=== PATIENT | male | born 1950 | race Hispanic/Latino ===

== ENCOUNTER 2021-05-26 02:13 | Emergency (ER) | payer MEDICARE ==
[2021-05-26 02:20] VITALS: BP 195/126
== END 2021-05-26 04:40 | disposition home or self-care (01) ==
LOC: ED 02:13
DX: R33.9 Retention of urine, unspecified (principal); R10.30 Lower abdominal pain, unspecified; Z98.890 Other specified postprocedural states; Z79.899 Other long term (current) drug therapy
CPT/HCPCS: 51702; 81001; 99283

== ENCOUNTER 2022-06-09 23:40 | Emergency (ER) | payer MEDICARE ==
[2022-06-09 23:56] VITALS: BP 183/94
[2022-06-10 01:07] LABS: Color,Urine Red (Yellow)
[2022-06-10 01:09] LABS: RBC,Urine > 182.0 /HPF (0.0-6.0)
[2022-06-10 01:10] LABS: WBC,Urine < 1.0 /HPF (0.0-6.0)
== END 2022-06-10 01:00 | disposition left against medical advice (07) ==
LOC: ED 23:40
DX: R36.9 Urethral discharge, unspecified (principal); Z53.21 Procedure and treatment not carried out due to patient leaving prior to being seen by health care provider

== ENCOUNTER 2022-06-14 02:13 | Emergency (ER) | payer MEDICARE ==
--- NOTE | 2022-06-14 02:48 | Emergency Department Report ---
HPI - General Chief Complaint: Urogenital-Male PUI?: No Time Seen by Provider: 06/14/22 02:42 - HPI HPI: 71-year-old male with a history of chronic urinary retention, presents for evaluation of urinary retention. Patient states that his symptoms began in the past 2 to 3 days. He complains of lower abdominal pain which is persistent. He states he last urinated in the waiting room prior to being brought back to the main emergency department. He states he is currently being treated for hematuria and UTI by his urologist but does not know the name of the antibiotic which he is taking. No back or flank pain, no nausea vomiting fevers or chills, no body aches. Pain currently 6 out of 10. Patient states he has an appointment later this morning with his urologist, Dr.Tarique Mullins, whose number is [phone]. ED Past Medical Hx - Past Medical History Previous Medical History?: Yes Hx Hypertension: No Hx CVA: No Hx Heart Attack/AMI: No Hx Congestive Heart Failure: No Hx Diabetes: No Hx Deep Vein Thrombosis: No Hx Pulmonary Embolism: No Hx GERD: No Hx Liver Disease: No Hx Renal Disease: No Hx Sickle Cell Disease: No Hx Arthritis: No Hx Headaches / Migraines: No Hx Seizures: No Hx Kidney Stones: No Hx Psychiatric Treatment: No Hx Asthma: No Hx COPD: No Hx Tuberculosis: No Hx Dementia: No Hx HIV: No Additional medical history: BPH - Surgical History Hx Coronary Stent: No Hx Open Heart Surgery: No Hx Pacemaker: No Hx Internal Defibrillator: No Hx Cholecystectomy: No Hx Appendectomy: No Hx Breast Surgery: No - Social History Smoking Status: Never Smoker Substance Use Type: None - Medications Home Medications: Home Medications Medication Instructions Recorded Confirmed Last Taken Type Ibuprofen [Motrin] 800 mg PO Q8HR PRN #15 tablet 05/30/16 Unknown Rx cephALEXin [Keflex] 500 mg PO Q12HR #14 cap 05/30/16 Unknown Rx ED Review of Systems ROS: Stated complaint: PROBLEM URINATING Other details as noted in HPI Comment: All other systems reviewed and negative Physical Exam - Physical Exam Vital Signs: Vital Signs 06/14/22 02:19 Temperature 97.4 F L Pulse Rate 103 H Respiratory 18 Rate Blood Pressure 223/99 O2 Sat by Pulse 98 Oximetry General: Gen: pt is well appearing, no acute distress HEENT: Normocephalic atraumatic pupils equally round and reactive to light extraocular muscles intact sclera anicteric Neck: Full range of motion, no midline spinal tenderness palpation, no JVD, no carotid bruits, no nuchal rigidity CVS: S1-S2 regular rate and rhythm with no gallops rubs or murmurs, chest wall nontender Pulmonary: Clear to auscultation bilaterally, no wheezes rales or rhonchi Abdomen: Lower abdomen firm, moderate tenderness palpation of the patient's suprapubic region, no guarding or rebound tenderness, no palpable deformities or step-offs, normal active bowel sounds, no hepatosplenomegaly, no pulsatile masses : Deferred Extremities: No cyanosis no clubbing no edema, intact distal peripheral pulses, Integumentary: Skin normal, no petechia no purpura no abscess no lacerations no evidence of trauma no evidence of infection Neuro: Patient is awake alert and oriented to person place time situation, mentating well, cranial nerves II through XII intact, no focal neurodeficits, sensation grossly tact Psych: Calm cooperative, mood affect normal ED Course Vital Signs 06/14/22 02:19 Temperature 97.4 F L Pulse Rate 103 H Respiratory 18 Rate Blood Pressure 223/99 O2 Sat by Pulse 98 Oximetry - Reevaluation(s) Reevaluation #1: 06/14/22 05:18 pt reassessed; He denies any complaints; pt is comfortable and well appearing; nad; vss ED Medical Decision Making - Lab Data Result diagrams: 06/14/22 02:50 06/14/22 02:50 - Medical Decision Making 71-year-old male with a history of acute on chronic urinary retention presents for evaluation of acute urinary retention. Vitals reviewed. Patient initially very hypertensive upon arrival. However his blood pressure subsequently improved without intervention here. Serum labs are grossly unremarkable for any acute organ dysfunction, leukocytosis or bandemia, or any infection. The patient initially was adamant that he did not want a urinary Zarate catheter and requested directly to undergo urinary catheterization. However the patient subsequently changed his mind and requested to have a Zarate catheter placed. Patient confirms several times that he has a scheduled follow-up appointment today with his urologist, Dr.Tarique Mullins, for follow-up concerning his antibiotics and ongoing urinary retention. Patient discharged home with indwelling urinary Zarate catheter. No further emergent work-up warranted at this time. Patient stable for discharge to home. Prior to discharge patient was given strict verbal and written return precautions. He verbalized understanding and agreement plan of care peer Critical Care Time: No Critical care attestation.: If time is entered above; I have spent that time in minutes in the direct care of this critically ill patient, excluding procedure time. ED Disposition Clinical Impression: Acute on chronic urinary retention Disposition: HOME / SELF CARE / HOMELESS Is pt being admited?: No Does the pt Need Aspirin: No Condition: Stable Instructions: Acute Urinary Retention, Male, [id number] Additional Instructions: See your urologist today for your routine scheduled follow up appointment. He will further advise you and determine how long your Zarate catheter needs to remain in place. Your blood work on today is normal and your urine does not show any active infection. Observe your symptoms very carefully. Return to the nearest emergency department if you develop persistent bleeding and/or clots in your urinary Zarate catheter, severe abdominal pain, vomiting, back or flank pain, any fever of 100.4 Fahrenheit or higher, or if any other new worrisome symptoms develop.
[2022-06-14 03:20] VITALS: BP 166/85
[2022-06-14 03:22] LABS: Basophils % (Auto) 0.1 % (0.0-1.8); Eosinophils # (Auto) 0.1 K/mm3 (0.0-0.4); Eosinophils % (Auto) 0.9 % (0.0-4.3); Hematocrit 38.8 % (35.5-45.6); Hemoglobin 13.2 gm/dl (11.8-15.2); Lymphocytes # (Auto) 0.6 K/mm3 (1.2-5.4); Lymphocytes % (Auto) 5.9 % (13.4-35.0); Mean Corpuscular HGB Conc 34 % (32-34); Mean Corpuscular Volume 97 fl (84-94); Monocytes # (Auto) 0.6 K/mm3 (0.0-0.8); Monocytes % (Auto) 5.3 % (0.0-7.3); Platelet Count 274 K/mm3 (140-440); Red Blood Count 4.01 M/mm3 (3.65-5.03); Red Cell Distribution Width 13.2 % (13.2-15.2)
[2022-06-14 03:40] LABS: Blood Urea Nitrogen 10 mg/dL (9-20); Calcium 8.6 mg/dL (8.4-10.2); Hemolysis Index 5
[2022-06-14 03:50] LABS: BUN/Creatinine Ratio 14
[2022-06-14 04:59] LABS: Mucus,Urine FEW /HPF
[2022-06-14 05:04] LABS: Color,Urine Brown (Yellow)
== END 2022-06-14 05:34 | disposition home or self-care (01) ==
LOC: ED 02:13
DX: R33.9 Retention of urine, unspecified (principal)
CPT/HCPCS: 36415; 51702; 80048; 81001; 85025; 99283

== ENCOUNTER 2022-06-14 17:50 | Emergency (ER) | payer MEDICARE, OTHER ==
[2022-06-15 09:23] LABS: Color,Urine Red (Yellow)
[2022-06-15 09:28] LABS: Bacteria,Urine 2+ /HPF (Negative); Hyaline Casts,Urine 2 /LPF; Mucus,Urine 3+ /HPF
--- NOTE | 2022-06-15 09:53 | Emergency Department Report ---
ED Male HPI - General Chief complaint: Urogenital-Male Stated complaint: CATHETER STOPPED UP Time Seen by Provider: 06/15/22 06:36 Source: patient Mode of arrival: Ambulatory Limitations: No Limitations - History of Present Illness Initial comments: Pt was here last night for catheter placement and UTI, states he believes it is stopped up, urine leaking around catheter, pt moaning and pacing around in triage MD Complaint: dysuria -: Gradual, hour(s) Radiation: none Quality: aching Consistency: now resolved Improves with: none Worsens with: none - Related Data Previous Rx's Medication Instructions Recorded Last Taken Type Ibuprofen [Motrin] 800 mg PO Q8HR PRN #15 tablet 05/30/16 Unknown Rx cephALEXin [Keflex] 500 mg PO Q12HR #14 cap 05/30/16 Unknown Rx Allergies Allergy/AdvReac Type Severity Reaction Status Date / Time No Known Allergies Allergy Unverified 08/06/13 14:04 ED Review of Systems ROS: Stated complaint: CATHETER STOPPED UP Other details as noted in HPI Constitutional: denies: chills, fever Eyes: denies: eye pain, eye discharge, vision change ENT: denies: ear pain, throat pain Respiratory: denies: cough, shortness of breath, wheezing Cardiovascular: denies: chest pain, palpitations Endocrine: no symptoms reported Gastrointestinal: denies: abdominal pain, nausea, diarrhea Genitourinary: denies: urgency, dysuria Musculoskeletal: denies: back pain, joint swelling, arthralgia Skin: denies: rash, lesions Neurological: denies: headache, weakness, paresthesias Psychiatric: denies: anxiety, depression Hematological/Lymphatic: denies: easy bleeding, easy bruising ED Past Medical Hx - Past Medical History Hx Hypertension: No Hx CVA: No Hx Heart Attack/AMI: No Hx Congestive Heart Failure: No Hx Diabetes: No Hx Deep Vein Thrombosis: No Hx Pulmonary Embolism: No Hx GERD: No Hx Liver Disease: No Hx Renal Disease: No Hx Sickle Cell Disease: No Hx Arthritis: No Hx Headaches / Migraines: No Hx Seizures: No Hx Kidney Stones: No Hx Psychiatric Treatment: No Hx Asthma: No Hx COPD: No Hx Tuberculosis: No Hx Dementia: No Hx HIV: No Additional medical history: BPH - Surgical History Past Surgical History?: No Hx Coronary Stent: No Hx Open Heart Surgery: No Hx Pacemaker: No Hx Internal Defibrillator: No Hx Cholecystectomy: No Hx Appendectomy: No Hx Breast Surgery: No - Social History Smoking Status: Never Smoker Substance Use Type: None - Medications Home Medications: Home Medications Medication Instructions Recorded Confirmed Last Taken Type Ibuprofen [Motrin] 800 mg PO Q8HR PRN #15 tablet 05/30/16 Unknown Rx cephALEXin [Keflex] 500 mg PO Q12HR #14 cap 05/30/16 Unknown Rx ED Physical Exam - General Limitations: No Limitations General appearance: alert, in no apparent distress - Head Head exam: Present: atraumatic, normocephalic - Eye Eye exam: Present: normal appearance - ENT ENT exam: Present: mucous membranes moist - Neck Neck exam: Present: normal inspection - Respiratory Respiratory exam: Present: normal lung sounds bilaterally. Absent: respiratory distress - Cardiovascular Cardiovascular Exam: Present: regular rate, normal rhythm. Absent: systolic murmur, diastolic murmur, rubs, gallop - GI/Abdominal GI/Abdominal exam: Present: soft, normal bowel sounds - Rectal Rectal exam: Present: deferred - Extremities Exam Extremities exam: Present: normal inspection - Back Exam Back exam: Present: normal inspection - Neurological Exam Neurological exam: Present: alert, oriented X3 - Psychiatric Psychiatric exam: Present: normal affect, normal mood - Skin Skin exam: Present: warm, dry, intact, normal color. Absent: rash ED Course Vital Signs 06/14/22 06/15/22 06/15/22 18:52 05:16 05:18 Temperature 97.8 F 98.2 F Pulse Rate 98 H 88 87 Respiratory 18 13 17 Rate Blood Pressure Blood Pressure 173/88 154/79 [Right] O2 Sat by Pulse 96 98 98 Oximetry 06/15/22 06/15/22 06/15/22 05:31 05:45 06:01 Temperature Pulse Rate 93 H 85 83 Respiratory 19 17 19 Rate Blood Pressure 145/73 155/70 155/70 Blood Pressure [Right] O2 Sat by Pulse 98 98 98 Oximetry 06/15/22 06/15/22 06/15/22 06:15 06:18 07:31 Temperature 97.8 F Pulse Rate 88 88 Respiratory 19 22 Rate Blood Pressure 148/80 Blood Pressure 132/66 [Right] O2 Sat by Pulse 98 99 97 Oximetry ED Medical Decision Making - Medical Decision Making fley replaced pain resoved abx given Critical care attestation.: If time is entered above; I have spent that time in minutes in the direct care of this critically ill patient, excluding procedure time. ED Disposition Clinical Impression: UTI (urinary tract infection), Zarate catheter problem Disposition: HOME / SELF CARE / HOMELESS Is pt being admited?: No Does the pt Need Aspirin: No Condition: Stable Instructions: Urinary Tract Infection, Adult, [id number] Referrals: CEDRIC BATRES JR, MD [Primary Care Provider] - 3-5 Days
[2022-06-15 10:33] VITALS: BP 136/70
== END 2022-06-15 10:32 | disposition home or self-care (01) ==
LOC: ED 17:50
DX: T83.091A Other mechanical complication of indwelling urethral catheter, initial encounter (principal); N39.0 Urinary tract infection, site not specified; Y73.8 Miscellaneous gastroenterology and urology devices associated with adverse incidents, not elsewhere classified; Y92.89 Other specified places as the place of occurrence of the external cause
CPT/HCPCS: 51702; 81001; 87086; 99283

== ENCOUNTER 2022-07-10 21:18 | Emergency (ER) | payer MEDICARE, OTHER ==
[2022-07-10 23:30] LABS: Bilirubin,Urine NEG (Negative); Blood,Urine MOD (Negative); Color,Urine Red (Yellow)
[2022-07-10 23:36] LABS: Protein,Urine >500 mg/dL (Negative); Urobilinogen,Urine < 2 mg/dL (<2.0)
[2022-07-10 23:59] LABS: RBC,Urine > 182.0 /HPF (0.0-6.0); WBC,Urine > 182.0 /HPF (0.0-6.0)
[2022-07-11] MEDS ORDERED: SODIUM CHLORIDE 0.9% IRRIG SOLN 2000 ML IR SCH (01:00)
--- NOTE | 2022-07-11 02:53 | Emergency Department Report ---
ED General Adult HPI - General Chief complaint: Urogenital-Male Stated complaint: BLEEDING AROUND CATHETER PUI?: No Time Seen by Provider: 07/10/22 22:47 Source: patient Mode of arrival: Ambulatory Limitations: No Limitations - History of Present Illness Initial comments: nick reports his catheter is clogged and he is having some bleeding -: Gradual, hour(s) Consistency: constant Improves with: none Worsens with: none Associated Symptoms: denies: denies other symptoms, confusion, chest pain, cough Treatments Prior to Arrival: none - Related Data Previous Rx's Medication Instructions Recorded Last Taken Type Ibuprofen [Motrin] 800 mg PO Q8HR PRN #15 tablet 05/30/16 Unknown Rx cephALEXin [Keflex] 500 mg PO Q12HR #14 cap 05/30/16 Unknown Rx Ciprofloxacin HCl 500 mg PO BID #14 06/15/22 Unknown Rx Ciprofloxacin [Ciprofloxacin ORAL 500 mg PO Q12H #14 ml 07/11/22 Unknown Rx LIQ] Allergies Allergy/AdvReac Type Severity Reaction Status Date / Time No Known Allergies Allergy Unverified 08/06/13 14:04 ED Review of Systems ROS: Stated complaint: BLEEDING AROUND CATHETER Other details as noted in HPI Constitutional: denies: chills, fever Eyes: denies: eye pain, eye discharge, vision change ENT: denies: ear pain, throat pain Respiratory: denies: cough, shortness of breath, wheezing Cardiovascular: denies: chest pain, palpitations Endocrine: no symptoms reported Gastrointestinal: denies: abdominal pain, nausea, diarrhea Genitourinary: denies: urgency, dysuria Musculoskeletal: denies: back pain, joint swelling, arthralgia Skin: denies: rash, lesions Neurological: denies: headache, weakness, paresthesias Psychiatric: denies: anxiety, depression Hematological/Lymphatic: denies: easy bleeding, easy bruising ED Past Medical Hx - Past Medical History Previous Medical History?: Yes Hx Hypertension: No Hx CVA: No Hx Heart Attack/AMI: No Hx Congestive Heart Failure: No Hx Diabetes: No Hx Deep Vein Thrombosis: No Hx Pulmonary Embolism: No Hx GERD: No Hx Liver Disease: No Hx Renal Disease: No Hx Sickle Cell Disease: No Hx Arthritis: No Hx Headaches / Migraines: No Hx Seizures: No Hx Kidney Stones: No Hx Psychiatric Treatment: No Hx Asthma: No Hx COPD: No Hx Tuberculosis: No Hx Dementia: No Hx HIV: No Additional medical history: BPH - Surgical History Past Surgical History?: Yes Hx Coronary Stent: No Hx Open Heart Surgery: No Hx Pacemaker: No Hx Internal Defibrillator: No Hx Cholecystectomy: No Hx Appendectomy: No Hx Breast Surgery: No - Social History Smoking Status: Never Smoker Substance Use Type: None - Medications Home Medications: Home Medications Medication Instructions Recorded Confirmed Last Taken Type Ibuprofen [Motrin] 800 mg PO Q8HR PRN #15 tablet 05/30/16 Unknown Rx cephALEXin [Keflex] 500 mg PO Q12HR #14 cap 05/30/16 Unknown Rx Ciprofloxacin HCl 500 mg PO BID #14 06/15/22 Unknown Rx Ciprofloxacin [Ciprofloxacin ORAL 500 mg PO Q12H #14 ml 07/11/22 Unknown Rx LIQ] ED Physical Exam - General Limitations: No Limitations General appearance: alert, in no apparent distress - Head Head exam: Present: atraumatic, normocephalic - Eye Eye exam: Present: normal appearance - ENT ENT exam: Present: mucous membranes moist - Neck Neck exam: Present: normal inspection - Respiratory Respiratory exam: Present: normal lung sounds bilaterally. Absent: respiratory distress - Cardiovascular Cardiovascular Exam: Present: regular rate, normal rhythm. Absent: systolic murmur, diastolic murmur, rubs, gallop - GI/Abdominal GI/Abdominal exam: Present: soft, normal bowel sounds - Rectal Rectal exam: Present: deferred - Extremities Exam Extremities exam: Present: normal inspection - Back Exam Back exam: Present: normal inspection - Neurological Exam Neurological exam: Present: alert, oriented X3 - Psychiatric Psychiatric exam: Present: normal affect, normal mood - Skin Skin exam: Present: warm, dry, intact, normal color. Absent: rash ED Course Vital Signs 07/10/22 07/10/22 22:39 23:28 Temperature 98.2 F Pulse Rate 113 H Respiratory 16 Rate Blood Pressure 169/101 [Right] O2 Sat by Pulse 100 98 Oximetry ED Medical Decision Making - Medical Decision Making kat terrell irrgated Critical care attestation.: If time is entered above; I have spent that time in minutes in the direct care of this critically ill patient, excluding procedure time. ED Disposition Clinical Impression: Hematuria, gross Disposition: 01 HOME / SELF CARE / HOMELESS Is pt being admited?: No Does the pt Need Aspirin: No Condition: Stable Prescriptions: Ciprofloxacin [Ciprofloxacin ORAL LIQ] 500 mg PO Q12H #14 ml Referrals: CEDRIC BATRES JR, MD [Primary Care Provider] - 3-5 Days
[2022-07-11 04:00] VITALS: BP 145/86
== END 2022-07-11 04:03 | disposition home or self-care (01) ==
LOC: ED 21:18
DX: R31.0 Gross hematuria (principal)
CPT/HCPCS: 51702; 81001; 99283

== ENCOUNTER 2022-07-11 05:08 | Emergency (ER) | payer MEDICARE ==
--- NOTE | 2022-07-11 07:37 | Emergency Department Report ---
ED Male HPI - General Chief complaint: Tube Replacement Stated complaint: CATHETER ISSUES Time Seen by Provider: 07/11/22 07:32 Source: patient Mode of arrival: Ambulatory Limitations: No Limitations - History of Present Illness Initial comments: 71-year-old male with history of BPH, has had Zarate catheter in approximately 1 month, complaining of having hematuria. Patient seen in emergency and cath catheter changed last night but felt that it may have been obstructed. At this time patient passing blood and catheter feels more comforta ble. does not feel his bladder is full. MD Complaint: dysuria -: Gradual Radiation: none Severity: mild Consistency: constant Improves with: urination denies other symptoms - Related Data Previous Rx's Medication Instructions Recorded Last Taken Type Ibuprofen [Motrin] 800 mg PO Q8HR PRN #15 tablet 05/30/16 Unknown Rx cephALEXin [Keflex] 500 mg PO Q12HR #14 cap 05/30/16 Unknown Rx Ciprofloxacin HCl 500 mg PO BID #14 06/15/22 Unknown Rx Ciprofloxacin [Ciprofloxacin ORAL 500 mg PO Q12H #14 ml 07/11/22 Unknown Rx LIQ] Allergies Allergy/AdvReac Type Severity Reaction Status Date / Time No Known Allergies Allergy Unverified 08/06/13 14:04 ED Review of Systems ROS: Stated complaint: CATHETER ISSUES Other details as noted in HPI Constitutional: no symptoms reported Eyes: as per HPI ENT: denies: ear pain, throat pain Respiratory: denies: cough, shortness of breath, wheezing Cardiovascular: denies: chest pain, palpitations Endocrine: no symptoms reported Gastrointestinal: denies: abdominal pain, nausea, diarrhea Genitourinary: denies: urgency, dysuria Musculoskeletal: denies: back pain, joint swelling, arthralgia Skin: denies: rash, lesions Neurological: denies: headache, weakness, paresthesias Psychiatric: denies: anxiety, depression Hematological/Lymphatic: denies: easy bleeding, easy bruising ED Past Medical Hx - Past Medical History Previous Medical History?: Yes Hx Hypertension: No Hx CVA: No Hx Heart Attack/AMI: No Hx Congestive Heart Failure: No Hx Diabetes: No Hx Deep Vein Thrombosis: No Hx Pulmonary Embolism: No Hx GERD: No Hx Liver Disease: No Hx Renal Disease: No Hx Sickle Cell Disease: No Hx Arthritis: No Hx Headaches / Migraines: No Hx Seizures: No Hx Kidney Stones: No Hx Psychiatric Treatment: No Hx Asthma: No Hx COPD: No Hx Tuberculosis: No Hx Dementia: No Hx HIV: No Additional medical history: BPH - Surgical History Past Surgical History?: No Hx Coronary Stent: No Hx Open Heart Surgery: No Hx Pacemaker: No Hx Internal Defibrillator: No Hx Cholecystectomy: No Hx Appendectomy: No Hx Breast Surgery: No - Social History Smoking Status: Never Smoker Substance Use Type: None - Medications Home Medications: Home Medications Medication Instructions Recorded Confirmed Last Taken Type Ibuprofen [Motrin] 800 mg PO Q8HR PRN #15 tablet 05/30/16 Unknown Rx cephALEXin [Keflex] 500 mg PO Q12HR #14 cap 05/30/16 Unknown Rx Ciprofloxacin HCl 500 mg PO BID #14 06/15/22 Unknown Rx Ciprofloxacin [Ciprofloxacin ORAL 500 mg PO Q12H #14 ml 07/11/22 Unknown Rx LIQ] ED Physical Exam - General Limitations: No Limitations General appearance: alert, in no apparent distress - Head Head exam: Present: atraumatic, normocephalic - Eye Eye exam: Present: normal appearance, PERRL Pupils: Present: normal accommodation - ENT ENT exam: Present: normal exam, mucous membranes moist - Neck Neck exam: Present: normal inspection - Respiratory Respiratory exam: Present: normal lung sounds bilaterally. Absent: respiratory distress - Cardiovascular Cardiovascular Exam: Present: regular rate, normal rhythm. Absent: systolic murmur, diastolic murmur, rubs, gallop - GI/Abdominal GI/Abdominal exam: Present: soft, normal bowel sounds. Absent: distended, tenderness - Rectal Rectal exam: Present: deferred - exam: Present: other (Zarate catheter in place with bag is draining pinkish urine. Bladder is not distended) - Extremities Exam Extremities exam: Present: normal inspection, full ROM - Back Exam Back exam: Present: normal inspection - Neurological Exam Neurological exam: Present: alert, oriented X3 - Psychiatric Psychiatric exam: Present: normal affect, normal mood - Skin Skin exam: Present: warm, dry, intact, normal color. Absent: rash ED Course Vital Signs 07/11/22 05:09 Temperature 97.9 F Pulse Rate 93 H Respiratory 18 Rate Blood Pressure 137/77 O2 Sat by Pulse 99 Oximetry Critical care attestation.: If time is entered above; I have spent that time in minutes in the direct care of this critically ill patient, excluding procedure time. ED Disposition Clinical Impression: Urinary retention, Hematuria Disposition: 01 HOME / SELF CARE / HOMELESS Is pt being admited?: No Does the pt Need Aspirin: No Condition: Stable Instructions: Hematuria, Adult Additional Instructions: Must see urologist this week Time of Disposition: 07:36
[2022-07-11 08:00] VITALS: BP 183/97
== END 2022-07-11 08:01 | disposition home or self-care (01) ==
LOC: ED 05:08
DX: R33.9 Retention of urine, unspecified (principal); R31.9 Hematuria, unspecified
CPT/HCPCS: 99282